=== PATIENT | male | born 1960 | race Caucasian/White ===

== ENCOUNTER → 2017-01-02 | Outpatient (REF) | payer MEDICARE, BC, OTHER ==
[2017-01-02 17:12] LABS: REASON FOR REVIEW COMPREHENSIVE REVIEW
== END ==
LOC: M LAB REF 15:11
PROVIDERS: ATTEND Internal Medicine Medical Oncology
DX: D72.819 Decreased white blood cell count, unspecified (principal); I82.90 Acute embolism and thrombosis of unspecified vein

== ENCOUNTER → 2017-01-24 | Outpatient (REF) | payer MEDICARE, BC, OTHER | LOC: M LAB REF 17:40 | PROVIDERS: ATTEND Internal Medicine Medical Oncology | DX: D70.8 Other neutropenia (principal) ==

== ENCOUNTER → 2017-12-10 | Outpatient (REF) | payer MEDICARE, BC, OTHER ==
[2017-12-10 16:19] LABS: BASO % 1.9 % (0.0-1.0); EOS # 0.3 10^3/uL (0.0-0.50); EOS % 13.2 % (0.0-3.0); HEMATOCRIT 29.4 % (42.0-52.0); IMMATURE GRANULOCYTE % 0.9 % (0-3.0); LYMPH # 0.8 10^3/uL (1.5-4.5); LYMPH % 36.8 % (24.0-44.0); MEAN CORPUSCULAR HEMOGLOBIN 34.1 pg (27.0-33.0); MEAN CORPUSCULAR VOLUME 100.3 fl (80.0-96.0); MONO # 0.2 10^3/uL (0.0-0.8); MONO % 10.8 % (0.0-5.0); NEUTROPHILS % 36.4 % (36.0-66.0); RED BLOOD COUNT 2.93 10^6/uL (4.30-6.10); RED CELL DISTRIBUTION WIDTH 16.6 % (11.5-14.5); WHITE BLOOD COUNT 2.1 10^3/uL (4.0-10.0)
[2017-12-10 16:36] LABS: NEUTROPHILS # 0.8 10^3/uL (1.8-7.7); POSITIVE DIFF POS FLAG
== END ==
LOC: M LAB REF 15:55
DX: Z79.899 Other long term (current) drug therapy (principal)
CPT/HCPCS: 85025

== ENCOUNTER → 2017-12-11 | Outpatient (REF) | payer MEDICARE, BC, OTHER ==
[2017-12-11 14:14] LABS: HEMATOCRIT 30.3 % (42.0-52.0); HEMOGLOBIN 10.2 g/dl (13.5-17.5); MEAN CORPUSCULAR HEMOGLOBIN 34.5 pg (27.0-33.0); MEAN CORPUSCULAR HGB CONC 33.7 g/dl (32.0-36.5); MEAN CORPUSCULAR VOLUME 102.4 fl (80.0-96.0); RED BLOOD COUNT 2.96 10^6/uL (4.30-6.10); RED CELL DISTRIBUTION WIDTH 16.8 % (11.5-14.5); WHITE BLOOD COUNT 2.7 10^3/uL (4.0-10.0)
[2017-12-11 14:17] LABS: PLATELET COUNT, AUTOMATED 86 10^3/uL (150-450); POSITIVE MORPH POS FLAG
[2017-12-11 14:18] LABS: ADD MANUAL DIFFER YES; DIFF SLIDE NUMBER 292
[2017-12-11 14:43] LABS: BASOPHILS 2 % (0-4); EOSINOPHILS 15 % (0-5); LYMPHOCYTES 33 % (16-52); MONOCYTES 1 % (0-8); NEUTROPHILS 49 % (35-75)
[2017-12-11 14:44] LABS: ANISOCYTOSIS 2+; PLATELET ESTIMATE DECREASED (NORMAL)
[2017-12-11 14:45] LABS: IMMATURE PLATELET FRACTION % 9.4 % (0.0-10.9)
== END ==
LOC: M LAB REF 13:26
DX: D64.9 Anemia, unspecified (principal)
CPT/HCPCS: 85049

== ENCOUNTER → 2017-12-12 | Outpatient (REF) | payer MEDICARE, BC, OTHER ==
[2017-12-12 13:33] LABS: HEMATOCRIT 31.5 % (42.0-52.0); HEMOGLOBIN 10.6 g/dl (13.5-17.5); MEAN CORPUSCULAR HEMOGLOBIN 34.3 pg (27.0-33.0); MEAN CORPUSCULAR HGB CONC 33.7 g/dl (32.0-36.5); MEAN CORPUSCULAR VOLUME 101.9 fl (80.0-96.0); RED BLOOD COUNT 3.09 10^6/uL (4.30-6.10); RED CELL DISTRIBUTION WIDTH 16.8 % (11.5-14.5); WHITE BLOOD COUNT 2.9 10^3/uL (4.0-10.0)
[2017-12-12 13:34] LABS: ADD MANUAL DIFFER YES; DIFF SLIDE NUMBER 269; PLATELET COUNT, AUTOMATED 83 10^3/uL (150-450); POSITIVE DIFF POS FLAG; POSITIVE MORPH POS FLAG
[2017-12-12 14:09] LABS: ANISOCYTOSIS 2+; BASOPHILS 1 % (0-4); EOSINOPHILS 24 % (0-5); LYMPHOCYTES 47 % (16-52); MONOCYTES 1 % (0-8); NEUTROPHILS 27 % (35-75); PLATELET ESTIMATE DECREASED (NORMAL)
[2017-12-12 14:10] LABS: HYPOCHROMASIA 1+
[2017-12-12 14:17] LABS: IMMATURE PLATELET FRACTION % 8.5 % (0.0-10.9)
[2017-12-12 14:48] LABS: EOS # 0.6 10^3/uL (0.0-0.50); EOS % 21.5 % (0.0-3.0); IMMATURE GRANULOCYTE % 3.1 % (0-3.0); LYMPH # 0.9 10^3/uL (1.5-4.5); LYMPH % 30.4 % (24.0-44.0); MONO # 0.3 10^3/uL (0.0-0.8); MONO % 9.2 % (0.0-5.0); NEUTROPHILS % 33.8 % (36.0-66.0)
[2017-12-12 14:49] LABS: BASO # 0.1 10^3/uL (0.0-0.2); IMMATURE GRANULOCYTE # 0.1 10^3/uL (0-0)
== END ==
LOC: M LAB REF 13:19
DX: C92.00 Acute myeloblastic leukemia, not having achieved remission (principal)
CPT/HCPCS: 85049

== ENCOUNTER → 2017-12-13 | Outpatient (REF) | payer MEDICARE, OTHER ==
[2017-12-13 12:32] LABS: BASO # 0.1 10^3/uL (0.0-0.2); BASO % 1.9 % (0.0-1.0); EOS # 0.7 10^3/uL (0.0-0.50); EOS % 27.2 % (0.0-3.0); HEMATOCRIT 31.3 % (42.0-52.0); HEMOGLOBIN 10.5 g/dl (13.5-17.5); IMMATURE GRANULOCYTE # 0.1 10^3/uL (0-0); IMMATURE GRANULOCYTE % 1.9 % (0-3.0); LYMPH # 0.6 10^3/uL (1.5-4.5); LYMPH % 22.6 % (24.0-44.0); MEAN CORPUSCULAR HEMOGLOBIN 34.2 pg (27.0-33.0); MEAN CORPUSCULAR HGB CONC 33.5 g/dl (32.0-36.5); MONO # 0.4 10^3/uL (0.0-0.8); MONO % 14.6 % (0.0-5.0); NEUTROPHILS # 0.8 10^3/uL (1.8-7.7); NEUTROPHILS % 31.8 % (36.0-66.0); PLATELET COUNT, AUTOMATED 73 10^3/uL (150-450); POSITIVE DIFF POS FLAG; POSITIVE MORPH POS FLAG; RED BLOOD COUNT 3.07 10^6/uL (4.30-6.10); RED CELL DISTRIBUTION WIDTH 16.7 % (11.5-14.5); WHITE BLOOD COUNT 2.6 10^3/uL (4.0-10.0)
== END ==
LOC: M LAB REF 11:45
DX: C92.00 Acute myeloblastic leukemia, not having achieved remission (principal)
CPT/HCPCS: 85027

== ENCOUNTER → 2017-12-18 | Outpatient (REF) | payer MEDICARE, OTHER ==
[2017-12-18 10:56] LABS: BASO % 1.4 % (0.0-1.0); EOS # 0.3 10^3/uL (0.0-0.50); HEMATOCRIT 31.5 % (42.0-52.0); HEMOGLOBIN 10.7 g/dl (13.5-17.5); LYMPH # 0.6 10^3/uL (1.5-4.5); LYMPH % 42.1 % (24.0-44.0); MEAN CORPUSCULAR HEMOGLOBIN 34.5 pg (27.0-33.0); MEAN CORPUSCULAR VOLUME 101.6 fl (80.0-96.0); MONO # 0.3 10^3/uL (0.0-0.8); MONO % 22.1 % (0.0-5.0); RED CELL DISTRIBUTION WIDTH 16.2 % (11.5-14.5)
[2017-12-18 11:00] LABS: EOS % 21.4 % (0.0-3.0); NEUTROPHILS # 0.2 10^3/uL (1.8-7.7); PLATELET COUNT, AUTOMATED 73 10^3/uL (150-450); POS COUNT POS FLAG; POSITIVE DIFF POS FLAG; WHITE BLOOD COUNT 1.5 10^3/uL (4.0-10.0)
[2017-12-18 11:01] LABS: IMMATURE PLATELET FRACTION % 8.6 % (0.0-10.9)
== END ==
LOC: M LAB REF 10:41
DX: C92.00 Acute myeloblastic leukemia, not having achieved remission (principal)
CPT/HCPCS: 85049

== ENCOUNTER → 2017-12-20 | Outpatient (REF) | payer MEDICARE, OTHER ==
[2017-12-20 11:13] LABS: BASO % 1.6 % (0.0-1.0); EOS # 0.7 10^3/uL (0.0-0.50); HEMATOCRIT 34.3 % (42.0-52.0); HEMOGLOBIN 11.6 g/dl (13.5-17.5); IMMATURE GRANULOCYTE % 0.4 % (0-3.0); LYMPH # 1.1 10^3/uL (1.5-4.5); LYMPH % 44.3 % (24.0-44.0); MEAN CORPUSCULAR HEMOGLOBIN 34.6 pg (27.0-33.0); MEAN CORPUSCULAR HGB CONC 33.8 g/dl (32.0-36.5); MEAN CORPUSCULAR VOLUME 102.4 fl (80.0-96.0); MONO # 0.5 10^3/uL (0.0-0.8); MONO % 19.3 % (0.0-5.0); NEUTROPHILS % 7.4 % (36.0-66.0); RED BLOOD COUNT 3.35 10^6/uL (4.30-6.10); WHITE BLOOD COUNT 2.4 10^3/uL (4.0-10.0)
[2017-12-20 11:15] LABS: NEUTROPHILS # 0.2 10^3/uL (1.8-7.7); PLATELET COUNT, AUTOMATED 92 10^3/uL (150-450); POSITIVE DIFF POS FLAG
[2017-12-20 11:16] LABS: IMMATURE PLATELET FRACTION % 8.4 % (0.0-10.9)
== END ==
LOC: M ONCM 10:44
DX: C92.00 Acute myeloblastic leukemia, not having achieved remission (principal)
CPT/HCPCS: 85049

== ENCOUNTER → 2017-12-23 | Outpatient (REF) | payer MEDICARE, OTHER ==
[2017-12-23 10:45] LABS: BASO # 0.1 10^3/uL (0.0-0.2); BASO % 1.9 % (0.0-1.0); EOS # 0.8 10^3/uL (0.0-0.50); HEMATOCRIT 35.2 % (42.0-52.0); HEMOGLOBIN 11.6 g/dl (13.5-17.5); LYMPH # 1.2 10^3/uL (1.5-4.5); MEAN CORPUSCULAR HEMOGLOBIN 33.8 pg (27.0-33.0); MEAN CORPUSCULAR VOLUME 102.6 fl (80.0-96.0); MONO # 0.4 10^3/uL (0.0-0.8); MONO % 14.9 % (0.0-5.0); NEUTROPHILS % 5.8 % (36.0-66.0); PLATELET COUNT, AUTOMATED 101 10^3/uL (150-450); RED BLOOD COUNT 3.43 10^6/uL (4.30-6.10); RED CELL DISTRIBUTION WIDTH 15.3 % (11.5-14.5); WHITE BLOOD COUNT 2.6 10^3/uL (4.0-10.0)
[2017-12-23 10:47] LABS: EOS % 31.4 % (0.0-3.0); NEUTROPHILS # 0.2 10^3/uL (1.8-7.7); POSITIVE DIFF POS FLAG
== END ==
LOC: M ONCM 09:46
DX: C92.00 Acute myeloblastic leukemia, not having achieved remission (principal)
CPT/HCPCS: 85027

== ENCOUNTER → 2017-12-25 | Outpatient (REF) | payer MEDICARE, OTHER ==
[2017-12-25 09:15] LABS: BASO % 1.4 % (0.0-1.0); EOS # 1.2 10^3/uL (0.0-0.50); EOS % 41.6 % (0.0-3.0); HEMOGLOBIN 11.7 g/dl (13.5-17.5); LYMPH # 1.1 10^3/uL (1.5-4.5); LYMPH % 38.8 % (24.0-44.0); MEAN CORPUSCULAR HEMOGLOBIN 34.4 pg (27.0-33.0); MEAN CORPUSCULAR HGB CONC 33.4 g/dl (32.0-36.5); MEAN CORPUSCULAR VOLUME 102.9 fl (80.0-96.0); MONO # 0.4 10^3/uL (0.0-0.8); MONO % 12.5 % (0.0-5.0); NEUTROPHILS # 0.2 10^3/uL (1.8-7.7); NEUTROPHILS % 5.7 % (36.0-66.0); PLATELET COUNT, AUTOMATED 79 10^3/uL (150-450); POSITIVE DIFF POS FLAG; WHITE BLOOD COUNT 2.8 10^3/uL (4.0-10.0)
[2017-12-25 09:17] LABS: IMMATURE PLATELET FRACTION % 8.3 % (0.0-10.9)
== END ==
LOC: M LAB REF 09:09
DX: C92.00 Acute myeloblastic leukemia, not having achieved remission (principal)
CPT/HCPCS: 85049

== ENCOUNTER 2018-04-22 11:26 | Inpatient (IN) | payer MEDICARE, BC, OTHER ==
[~2018-04-22] VITALS: Ht 170.2 cm; Wt 106.7 kg
[2018-04-22] MEDS ORDERED: ACYC200CA PO (11:49)
[2018-04-22] MEDS ORDERED: ASPI81TA63 PO (11:50)
[2018-04-22] MEDS ORDERED: MORPHINE 2 MG/ML 1ML SYRINGE (J2270) IV PRN (12:45)
[2018-04-22] MEDS ORDERED: ZARX0.05 INJ (13:24)
[2018-04-22] MEDS ORDERED: FOLBTAB3 PO (13:24)
[2018-04-22] MEDS ORDERED: METO25TA4 PO (13:24)
[2018-04-22] MEDS ORDERED: RAMI1CAP26 PO (13:24)
[2018-04-22] MEDS ORDERED: DIVA1TAB48 PO (13:24)
[2018-04-22] MEDS ORDERED: PANT40TA3 PO (13:24)
[2018-04-22] MEDS ORDERED: BUDE3CAP PO (13:24)
[2018-04-22] MEDS ORDERED: DOXY100C PO (13:24)
[2018-04-22] MEDS ORDERED: ACYC400T PO (13:24)
[2018-04-22] MEDS ORDERED: MG-PTAB PO (13:24)
[2018-04-22] MEDS ORDERED: PARO20TA3 PO (13:24)
[2018-04-22] MEDS ORDERED: NOXA1TAB PO (13:24)
[2018-04-22] MEDS ORDERED: LASI20TA3 PO (13:24)
[2018-04-22] MEDS ORDERED: DRIS50003 PO (13:24)
[2018-04-22] MEDS ORDERED: ASPI81TA24 PO (13:24)
[2018-04-22] MEDS ORDERED: POTA20TA6 PO (13:24)
[2018-04-22] MEDS ORDERED: SIRO1TAB PO (13:24)
[2018-04-22] MEDS ORDERED: URSO300C3 PO (13:24)
[2018-04-22] MEDS ORDERED: CIPR-249 PO (13:24)
[2018-04-22] MEDS ORDERED: PLAV1TAB2 PO (13:24)
[2018-04-22] MEDS ORDERED: METO25TA PO (13:24)
[2018-04-22] MEDS ORDERED: ROPI0.253 PO (13:24)
--- NOTE | 2018-04-22 13:27 | REP ---
Right lower extremity Duplex Doppler venous ultrasound: Real time compression and duplex Doppler interrogation of the right lower extremity deep venous system is performed. The right common femoral, superficial femoral and popliteal veins are fully compressible with transducer pressure and demonstrate normal spontaneous and phasic flow, without evidence of deep venous thrombosis. Impression: No evidence of deep venous thrombosis of the right lower extremity femoral popliteal venous system. Electronically Signed by Wilder Del Real MD 04/22/2018 01:18 P
[2018-04-22] MEDS ORDERED: BECLPOW PO (13:39)
--- NOTE | 2018-04-22 13:39 | REP ---
CHEST, SINGLE VIEW: Single view of the chest was performed and compared to prior study of 01/20/2015. There is no acute infiltrate. Heart is normal in size. There is calcification and tortuosity of the thoracic aorta. Mediastinal silhouette is unchanged. Right central venous catheter is seen with the tip in the superior vena cava. IMPRESSION: No acute pulmonary disease. Electronically Signed by Wilder Del Real MD 04/22/2018 05:27 P
[2018-04-22] MEDS ORDERED: ONDA8TAB7 PO (13:42)
[2018-04-22] MEDS ORDERED: FAMO1TAB11 PO (13:42)
[2018-04-22] MEDS ORDERED: LOPE2CAP PO (13:42)
[2018-04-22] MEDS ORDERED: TRAM50TA2 PO (13:43)
[2018-04-22 14:24] LABS: HEMOGLOBIN 12.9 g/dl (13.5-17.5); MEAN CORPUSCULAR HEMOGLOBIN 33.9 pg (27.0-33.0); MEAN CORPUSCULAR HGB CONC 33.9 g/dl (32.0-36.5); MEAN CORPUSCULAR VOLUME 99.7 fl (80.0-96.0); RED BLOOD COUNT 3.81 10^6/uL (4.30-6.10)
[2018-04-22 14:33] LABS: PLATELET COUNT, AUTOMATED 43 10^3/uL (150-450); WHITE BLOOD COUNT 1.7 10^3/uL (4.0-10.0)
[2018-04-22 14:41] LABS: INR 1.02; PARTIAL THROMBOPLASTIN TIME 25.1 SECONDS (25.4-37.6); PROTHROMBIN TIME 13.5 SECONDS (12.1-14.4)
[2018-04-22 15:00] LABS: ALBUMIN 3.1 GM/DL (3.2-5.2); ALT/SGPT 194 U/L (12-78); AMYLASE 48 U/L (25-115); BILIRUBIN,DIRECT 0.1 MG/DL (0.0-0.2); BILIRUBIN,TOTAL 0.4 MG/DL (0.2-1.0); BLOOD UREA NITROGEN 27 MG/DL (7-18); CALCIUM LEVEL 8.5 MG/DL (8.5-10.1); CARBON DIOXIDE LEVEL 29 MEQ/L (21-32); CHLORIDE LEVEL 104 MEQ/L (98-107); CK-MB VALUE MASS < 1.0 NG/ML (<3.6); CPK CREATINE PHOSPHOKINASE 30 U/L (39-308); CREATININE FOR GFR 1.36 MG/DL (0.70-1.30); GLOMERULAR FILTRATION RATE 57.3 (>56); GLUCOSE, FASTING 91 MG/DL (70-100); LIPASE 285 U/L (73-393); MB/CK RELATIVE INDEX 3.33 (< OR =4); POTASSIUM SERUM 3.8 MEQ/L (3.5-5.1); SODIUM LEVEL 140 MEQ/L (136-145); TOTAL PROTEIN 5.5 GM/DL (6.4-8.2); TROPONIN I 0.02 NG/ML (< 0.10)
[2018-04-22 15:18] LABS: LYMPHOCYTES 14 % (16-52); MONOCYTES 5 % (0-8); NEUTROPHILS 73 % (35-75); PLATELET ESTIMATE MARKED DECREASE (NORMAL)
[2018-04-22] MEDS ORDERED: ISOVUE-370 76% 100ML VIAL (Q9967) As Ordered ONE (15:18)
[2018-04-22 15:19] LABS: ANISOCYTOSIS 1+
[2018-04-22] MEDS ORDERED: NS 500 ML IV ONE (16:00)
[2018-04-22] MEDS ORDERED: CIPROFLOXACIN 400 MG in APPROPRIATE DILUENT 1 EA IV ONE (16:00)
[2018-04-22] MEDS ORDERED: metroNIDAZOLE 500 MG in APPROPRIATE DILUENT 1 EA IV ONE (16:00)
--- NOTE | 2018-04-22 16:25 | REP ---
CT ABDOMEN AND PELVIS WITH IV CONTRAST: TECHNIQUE: Axial contrast enhanced images from the lung bases to the pubic symphysis using 100 mL Isovue 370 intravenous contrast material with multiplanar reformations. Visualized lung bases demonstrate no infiltrate. The liver, spleen, adrenals, pancreas and kidneys are unremarkable. There is probably a tiny renal cyst in each kidney. There is no hydronephrosis. There is atherosclerotic calcification of the abdominal aorta without aneurysm. I see no adenopathy. There is mild perihepatic and perisplenic free fluid, with mild fluid in the pericolic gutters bilaterally. There is diffuse thickening of the sigmoid colon with surrounding streaky inflammatory change in the mesenteric fat. There is focal extraluminal air just above the sigmoid colon. There are diverticula of the sigmoid colon. This may represent perforated sigmoid diverticulitis. No free air is seen elsewhere. There are no other areas of definite bowel wall thickening. Urinary bladder is mildly distended and grossly unremarkable. Scarring is noted of the left anterior abdominal wall. There is a small ventral hernia above the umbilicus in the midline containing a small amount of fat and fluid. There are degenerative changes of the spine. IMPRESSION: Diffuse inflammation and thickening of the sigmoid colon. Extensive inflammatory change in the surrounding mesenteric fat. Local extraluminal air adjacent to the sigmoid. Findings suggest perforated sigmoid diverticulitis. There is mild free fluid in the abdomen and pelvis. Preliminary report provided for Dr. Clemons by telephone at 3:40 p.m. 04/22/2018. Electronically Signed by Wilder Del Real MD 04/23/2018 10:36 A
[2018-04-22] MEDS ORDERED: ONDANSETRON 4 MG TAB (S0181) PO PRN (18:30)
[2018-04-22] MEDS ORDERED: traMADol 50 MG TAB PO PRN (18:30)
[2018-04-22] MEDS ORDERED: LOPERAMIDE 2 MG CAP PO PRN (18:30)
[2018-04-22] MEDS ORDERED: PILL CRUSHER/CUTTER 1 EACH XX PRN (19:00)
--- NOTE | 2018-04-22 19:09 | ECGEPIP ---
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
[2018-04-22] MEDS: rOPINIRole 0.25 MG TAB(REQUIP) PO SCH (21:35)
[2018-04-22] MEDS: METOPROLOL TART 25 MG TABLET PO SCH (21:35)
[2018-04-22] MEDS: DIVALPROEX 125 MG TAB PO SCH (21:36)
[2018-04-22] MEDS: URSODIOL 300 MG CAP PO SCH (21:36)
[2018-04-22] MEDS: RAMIPRIL 5 MG CAP PO SCH (21:36)
--- NOTE | 2018-04-22 23:04 | HPEPDOC ---
General Date of Admission Apr 22, 2018 at 18:20 Primary Care Physician: Ramón Brady MD Other Providers Pulm: Dr. Zuirta Cardio: Dr. Cleveland Onc: Dr. Funes @ [place] Neuro: Dr. Pack Attending Physician: JOSE MANUEL FOWLER MD Chief Complaint The patient is a 57-year-old male admitted with a reason for visit of Cellulitis Of R Leg,Diverticulitis Of Colon. 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 Presents for acute onset of sharp low abd pain that began suddenly after eating supper on Saturday. Denies radiation, describes it as constant, aggravated by movement, alleviated by rest. Denies experiencing this before. No other sx. Denies f/c, n/v, changes in bowel habits, lightheadedness, dizziness. In ER, CT abd/pelvis noted to have perforated diverticulitis. ER spoke with Dr. Roa, who deemed it a microperforation and recommended supportive care, NPO, IVF, abx. Of note, pt also complained of rt leg pain. Doppler in ER was neg for DVT. Pt unsure of when the pain started and has limited hx regarding leg pain. Is notable to have erythema and warmth compared to left leg. No weeping fluids or visible ulcers/lesions. Pt was admitted for the aforementioned concerns. Home Medications Scheduled (Folbic 2.5-25-2 mg) 1 Tab Tab, 1 TAB PO DAILY, (Reported) (mg-Plus Protein 133 mg) 1 Tab Tab, 2 TAB PO BID, (Reported) (Zarxio) 480 Mcg/0.8 Ml Inj, 480 MCG INJ 1XWK, (Reported) FRIDAYS IF ANC <1.5 Acyclovir (Acyclovir) 400 Mg Tab, 400 MG PO DAILY, (Reported) Aspirin (Aspirin EC) 81 Mg Tab, 81 MG PO DAILY, (Reported) Beclomethasone Dipropionate (Beclomethasone Dipropiona) 1 Pow Pow, 2 MG PO QID, (Reported) Budesonide (Budesonide) 3 Mg Cap, 9 MG PO DAILY, (Reported) Ciprofloxacin HCl (Cipro) 500 Mg Tab, 500 MG PO BID, (Reported) Clopidogrel Bisulfate (Plavix) 75 Mg Tab, 75 MG PO DAILY, (Reported) ON HOLD- WAITING FOR PLATELET COUNT BEFORE RESTARTING Divalproex Sodium (Divalproex Sodium Dr) 125 Mg Tab, 125 MG PO QHS, (Reported) Doxycycline Hyclate (Doxycycline Hyclate) 100 Mg Cap, 100 MG PO QPM, (Reported) HOLD WHILE ON CIPRO Furosemide (Lasix) 20 Mg Tab, 20 MG PO 3XW, (Reported) SAT,SAT,SAT Metolazone (Metolazone) 2.5 Mg Tab, 2.5 MG PO 3XW, (Reported) SAT,SAT,SAT Metoprolol Tartrate (Metoprolol Tartrate) 25 Mg Tab, 25 MG PO BID, (Reported) Pantoprazole Sodium (Pantoprazole Sodium) 40 Mg Tab, 40 MG PO DAILY, (Reported) Paroxetine (Paroxetine HCl) 20 Mg Tab, 20 MG PO DAILY, (Reported) Posaconazole (Noxafil) 100 Mg Tab, 300 MG PO DAILY, (Reported) Potassium Chloride (Potassium Chloride ER) 20 Meq Tab, 40 MEQ PO BID, (Reported) Ramipril (Ramipril) 10 Mg Cap, 10 MG PO BID, (Reported) Ropinirole Hydrochloride (Ropinirole HCl) 0.25 Mg Tab, 0.75 MG PO QHS, (Reported) Sirolimus (Sirolimus) 0.5 Mg Tab, 0.5 MG PO 5XW, (Reported) SATURDAY- @ LUNCHTIME Ursodiol (Ursodiol) 300 Mg Cap, 600 MG PO TID, (Reported) Vitamin D (Drisdol) 50,000 Unit Cap, 50,000 UNIT PO QWEEK, (Reported) SATURDAY Scheduled PRN Famotidine (Famotidine) 20 Mg Tab, 20 MG PO DAILY PRN for HEARTBURN/INDIGESTION, (Reported) Loperamide HCl (Loperamide HCl) 2 Mg Tab, 4 MG PO PRN PRN for DIARRHEA, (Reported) Ondansetron HCl (Ondansetron HCl) 8 Mg Tab, 8 MG PO TID PRN for NAUSEA, (Reported) Tramadol HCl (Tramadol HCl) 50 Mg Tab, 50 MG PO QID PRN for PAIN, (Reported) Allergies Coded Allergies: Penicillins (Verified Allergy, Severe, POSSIBLE ANAPHYLAXIS, 06/10/12) Penicillins Cross Reactors (Verified Allergy, Severe, POSSIBLE ANAPH YLAXIS, 06/10/12) Statins (Verified Allergy, Intermediate, EXTREME MUSCLE PAIN, CANNOT TOLERATE, 04/22/18) Past Medical History Medical History AML, 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 Admits to low abd sharp pain MSK: admits to RLE pain and tenderness Neuro: denies new paresthesia Physical Examination Other physical findings General: NAD, resting comfy, A&Ox3 HEENT: NCAT, anicteric sclera, MMM CV: RRR, distant sounds Pulm: CTAB, no w/r/r. Infusaport on rt chest well GI: hypoactive bowel sounds, mildly tender to palpation in b/l lower quadrants. Large scar on left side of abd from previous graft MSK: able to move all extremities Extremities: 2+ radial pulses, diminished dp pulses. Warm and pink toes. 3+ pitting edema b/l LE. Warmth, erythema, and tenderness to palpation throughout rt LE from foot to calf Psych: irritable Vital Signs Vital Signs Date Time Temp Pulse Resp B/P (MAP) Pulse Ox O2 Delivery O2 Flow Rate FiO2 04/22/18 21:36 155/80 04/22/18 21:35 67 04/22/18 14:53 18 97 04/22/18 11:58 97.9 04/22/18 11:26 Room Air Laboratory Data Labs 24H Laboratory Tests 2 04/22/18 14:09: Immature Granulocyte % (Auto) , White Blood Count 1.7L, Red Blood Count 3.81L, Hemoglobin 12.9L, Hematocrit 38.0L, Mean Corpuscular Volume 99.7H, Mean Corpuscular Hemoglobin 33.9H, Mean Corpuscular Hemoglobin Concent 33.9, Red Cell Distribution Width 15.3H, Platelet Count 43L, Lymphocytes # (Auto) , Nucleated Red Blood Cells % (auto) 0.0, Neutrophils 73, Band Neutrophils 8, Lymphocytes (Manual) 14L, Monocytes (Manual) 5, Platelet Estimate MARKED DECREASE, Immature Platelet Fraction 5.9, Anisocytosis 1+, Prothrombin Time 13.5, Prothromb Time International Ratio 1.02, Activated Partial Thromboplast Time 25.1L, Anion Gap 7L, Glomerular Filtration Rate 57.3, Lactic Acid Level 1.3, Calcium Level 8.5, Aspartate Amino Transf (AST/SGOT) 114H, Alanine Aminotransferase (ALT/SGPT) 194H, Alkaline Phosphatase 56, Total Bilirubin 0.4, Direct Bilirubin 0.1, Total Creatine Kinase 30L, Creatine Kinase MB < 1.0, Creatine Kinase MB Relative Index 3.33, Troponin I 0.02, Total Protein 5.5L, Albumin 3.1L, Albumin/Globulin Ratio 1.29, Amylase Level 48, Lipase 285 04/22/18 14:23: Urine Color JO, Urine Appearance HAZY, Urine pH 5.0, Urine Specific [place] 1.023, Urine Protein 2+H, Urine Glucose (UA) NEGATIVE, Urine Ketones TRACEH, Urine Blood NEGATIVE, Urine Nitrite NEGATIVE, Urine Bilirubin NEGATIVE, Urine Urobilinogen 2.0H, Urine Leukocyte Esterase NEGATIVE, Urine WBC (Auto) 3, Urine RBC (Auto) 1, Urine Hyaline Casts (Auto) 19, Urine Bacteria (Auto) NEGATIVE, Urine Squamous Epithelial Cells 0, Urine Mucus (Auto) MODERATE, Urine Sperm (Auto) CBC/BMP Laboratory Tests 04/22/18 14:09 Red Blood Count 3.81 L, Mean Corpuscular Volume 99.7 H, Mean Corpuscular Hemoglobin 33.9 H, Mean Corpuscular Hemoglobin Concent 33.9, Red Cell Distribu tion Width 15.3 H, Lymphocytes # (Auto) Microbiology Microbiology 04/22/18 Blood Culture, Received Pending 04/22/18 Blood Culture, Received Pending Assessment/Plan Perforated Diverticulitis consulted Dr. Roa. Appreciate input: deemed to be microperf and recommends NPO, IVF, IV abx, and monitor closely. No plans for OR yet Will place on IV Flagyl & Meropenem given his concurrent cellulitis and penicillin allergy RLE Cellulitis warmth, erythema, tenderness to RLE. No purulent drainage covered with Meropenem AML, complex cytogenetics follows with [facility] in [place], with records sent to Dr. Govea consider consulting Dr. Govea for further inpt management regarding inpt AML pt normally received Zarxio for ANC<1500. 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 Will hold home Metolazone and Lasix. 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 Pt refusing DANIEL/SCD given leg pain DISPO: will admit to hospitalist service, to be seen by Sx. Obtain o/p records. Plan / VTE VTE Prophylaxis Ordered?: No VTE Exclusion Mechanical Proph: Patient/Family Refusal VTE Exclusion Pharmacological: Thrombocytopenia GME ATTESTATION GME ATTESTATION My faculty preceptor for this patient encounter was physically present during the encounter and was fully available. All aspects of the patient interview, examination, medical decision making process, and medical care plan development were reviewed and approved by the faculty preceptor. The faculty preceptor is aware and concurs with the plan as stated in the body of this note and will attest to such by his/her cosignature. GONZALO GUTIÉRREZ DO Apr 22, 2018 23:01
[2018-04-22] MEDS: D5W/0.45% SODIUM CHLORIDE 1,000 ML IV SCH (23:51)
[2018-04-22] MEDS: MEROPENEM INJ 1 GM in APPROPRIATE DILUENT 1 EA IV SCH (23:51)
[2018-04-23] MEDS ORDERED: metroNIDAZOLE 750 MG in APPROPRIATE DILUENT 1 EA IV SCH (01:00)
[2018-04-23] MEDS ORDERED: CIPROFLOXACIN 400 MG in APPROPRIATE DILUENT 1 EA IV SCH (06:00)
[2018-04-23] MEDS: MEROPENEM INJ 1 GM in APPROPRIATE DILUENT 1 EA IV SCH ×3 (06:45→21:37)
[2018-04-23] MEDS: BUDESONIDE EC 3 MG CAP (ENTOCORT EC) PO SCH (08:21)
[2018-04-23] MEDS: URSODIOL 300 MG CAP PO SCH ×3 (08:21→21:25)
[2018-04-23] MEDS: RAMIPRIL 5 MG CAP PO SCH ×2 (08:22→21:24)
[2018-04-23] MEDS: CYANOCOBALAMIN 250 MCG TABLET PO SCH (08:22)
[2018-04-23] MEDS: PANTOPRAZOLE 40MG TAB (PROTONIX) PO SCH (08:23)
[2018-04-23] MEDS: PYRIDOXINE 50 MG TAB PO SCH (08:25)
[2018-04-23] MEDS: ACYCLOVIR 200 MG CAPSULE PO SCH (08:25)
[2018-04-23] MEDS: FOLIC ACID 1 MG TAB PO SCH (08:25)
[2018-04-23] MEDS: PARoxetine 20 MG TAB PO SCH (08:25)
[2018-04-23] MEDS: METOPROLOL TART 25 MG TABLET PO SCH ×2 (08:25→21:37)
[2018-04-23] MEDS: ASPIRIN 81 MG ENTERIC TAB PO SCH (08:29)
[2018-04-23 08:48] LABS: HEMATOCRIT 34.9 % (42.0-52.0); MEAN CORPUSCULAR HEMOGLOBIN 33.8 pg (27.0-33.0); MEAN CORPUSCULAR HGB CONC 34.4 g/dl (32.0-36.5); MEAN CORPUSCULAR VOLUME 98.3 fl (80.0-96.0); RED BLOOD COUNT 3.55 10^6/uL (4.30-6.10)
[2018-04-23 08:49] LABS: PLATELET COUNT, AUTOMATED 39 10^3/uL (150-450); WHITE BLOOD COUNT 1.3 10^3/uL (4.0-10.0)
[2018-04-23] MEDS ORDERED: FILGRASTIM 480 MCG/0.8 ML SYRINGE (J1442) SC SCH (09:00)
--- NOTE | 2018-04-23 09:03 | IPNPDOC ---
Text Note Date of Service The patient was seen on 04/23/18. NOTE No acute events overnight. He does feel like his pain is improved. He had ano ther BM this am without any blood in it, and it was formed. He denies nausea, emesis, fevers, or shortness of breath. VSSAF NAD abd - soft, TTP LLQ slightly improved from yesterday. No rebound or guarding labs - see below A) 57y/o male with complicated diverticulitis with a microperforation immunocompromised with graft vs. host diseases P) NPO except ice and water abx ambulate bowel rest monitor labs and vitals closely if he develops any sudden increases in pain then he will need an acute abdominal series STAT. Jose Roa DO VS,Abbey, I+O VS, Abbey, I+O Laboratory Tests 04/22/18 14:09 Red Blood Count 3.81 L, Mean Corpuscular Volume 99.7 H, Mean Corpuscular Hemoglobin 33.9 H, Mean Corpuscular Hemoglobin Concent 33.9, Red Cell Dist ribution Width 15.3 H, Lymphocytes # (Auto) 04/23/18 08:34 Red Blood Count 3.55 L, Mean Corpuscular Volume 98.3 H, Mean Corpuscular Hemoglobin 33.8 H, Mean Corpuscular Hemoglobin Concent 34.4, Red Cell Distribution Width 15.0 H, Lymphocytes # (Auto) Vital Signs Date Time Temp Pulse Resp B/P (MAP) Pulse Ox O2 Delivery O2 Flow Rate FiO2 04/23/18 08:25 69 165/81 04/23/18 07:31 17 98 04/23/18 05:31 Room Air 04/23/18 04:01 97.9 I&O- Last 24 Hours up to 6 AM 04/23/18 06:00 Intake Total 300 ml Output Total 200 ml Balance 100 ml FILIPE ROA DO Apr 23, 2018 09:03
[2018-04-23 09:19] LABS: ALBUMIN 2.8 GM/DL (3.2-5.2); ALT/SGPT 145 U/L (12-78); BILIRUBIN,TOTAL 0.3 MG/DL (0.2-1.0); BLOOD UREA NITROGEN 25 MG/DL (7-18); CALCIUM LEVEL 7.8 MG/DL (8.5-10.1); CARBON DIOXIDE LEVEL 26 MEQ/L (21-32); CHLORIDE LEVEL 106 MEQ/L (98-107); GLOMERULAR FILTRATION RATE > 60.0 (>56); GLUCOSE, FASTING 92 MG/DL (70-100); POTASSIUM SERUM 3.1 MEQ/L (3.5-5.1); SODIUM LEVEL 141 MEQ/L (136-145); TOTAL PROTEIN 4.7 GM/DL (6.4-8.2)
[2018-04-23 09:43] LABS: ANISOCYTOSIS 1+; ATYPICAL LYMPH 2 % (0-5); EOSINOPHILS 2 % (0-5); MONOCYTES 8 % (0-8); NEUTROPHILS 86 % (35-75); TOXIC VACUOLATION 2+
[2018-04-23 09:44] LABS: PLATELET ESTIMATE DECREASED (NORMAL)
[2018-04-23 15:54] VITALS: BP 143/83
[2018-04-23] MEDS: D5W/0.45% SODIUM CHLORIDE 1,000 ML IV SCH ×3 (21:23→22:14)
[2018-04-23] MEDS: DIVALPROEX 125 MG TAB PO SCH (21:24)
[2018-04-23] MEDS: rOPINIRole 0.25 MG TAB(REQUIP) PO SCH (21:25)
[2018-04-23 21:30] VITALS: BP 151/85
--- NOTE | 2018-04-23 22:09 | IPNPDOC ---
Text Note Date of Service The patient was seen on 04/23/18. NOTE S: pt seen at bedside in ER. No events overnight. Abd pain is improving. No f/c/n/v/changes in bowel habits/bloody output PE: General: NAD, sitting in chair comfortably, A&Ox3 HEENT: NCAT, anicteric sclera, MMM CV: RRR, distant sounds Pulm: CTAB, no w/r/r. Infusaport on rt chest well GI: hypoactive bowel sounds, mildly tender to palpation in mid lower abd, improved from yesterday. Soft, no rebound tenderness, guarding, or rigidity. MSK: able to move all extremities Extremities: 2+ radial pulses. 3+ pitting edema b/l LE. Warmth, erythema, and tenderness to palpation throughout rt LE from foot to calf-unchanged from yesterday A/P: Diverticulitis with Microperforation continue NPO, IVF, IV abx, and monitor closely. No plans for OR. He is improving compared to admission Continue IV Meropenem started 04/22 Dr. Roa consulted. Appreciate input RLE Cellulitis warmth, erythema, tenderness to RLE unchanged from admission. No purulent drainage covered with Meropenem AML, complex cytogenetics in remission, s/p transplant. Follows with [facility] in [place] Dr. Govea consulted for further inpt management given his fragile state. Appreciate input Per her rec, will start pt on Neupogen 480 sc/day until ANC>1500 in lieu of his regular Zarxio, which we do not have on formulary. First dose of Neupogen today for an ANC of 1114 this am. 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 Will hold home Metolazone and Lasix. 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 Pt refusing DANIEL/SCD given leg pain DISPO: pending clinical improvement and awaiting o/p PCP records. VS,Fishbone, I+O VS, Fishbone, I+O Laboratory Tests 04/23/18 08:34 Red Blood Count 3.55 L, Mean Corpuscular Volume 98.3 H, Mean Corpuscular Hemoglobin 33.8 H, Mean Corpuscular Hemoglobin Concent 34.4, Red Cell Distribution Width 15.0 H, Lymphocytes # (Auto) , Calcium Level 7.8 L, Aspartate Amino Transf (AST/SGOT) 77 H, Alanine Aminotransferase (ALT/SGPT) 145 H, Alkaline Phosphatase 49, Total Bilirubin 0.3, Total Protein 4.7 L, Albumin 2.8 L Vital Signs Date Time Temp Pulse Resp B/P (MAP) Pulse Ox O2 Delivery O2 Flow Rate FiO2 04/23/18 21:37 80 151/85 04/23/18 15:54 97.9 20 97 04/23/18 05:31 Room Air I&O- Last 24 Hours up to 6 AM 04/23/18 06:00 Intake Total 300 ml Output Total 200 ml Balance 100 ml GME ATTESTATION GME ATTESTATION My faculty preceptor for this patient encounter was physically present during the encounter and was fully available. All aspects of the patient interview, examination, medical decision making process, and medical care plan development were reviewed and approved by the faculty preceptor. The faculty preceptor is aware and concurs with the plan as stated in the body of this note and will attest to such by his/her cosignature. GONZALO GUTIÉRREZ DO Apr 23, 2018 22:08
[2018-04-24] MEDS: MEROPENEM INJ 1 GM in APPROPRIATE DILUENT 1 EA IV SCH ×2 (05:49→14:23)
[2018-04-24 05:51] VITALS: BP 148/82
[2018-04-24 07:57] LABS: ALBUMIN 2.8 GM/DL (3.2-5.2); ALT/SGPT 165 U/L (12-78); BILIRUBIN,TOTAL 0.5 MG/DL (0.2-1.0); BLOOD UREA NITROGEN 25 MG/DL (7-18); CARBON DIOXIDE LEVEL 26 MEQ/L (21-32); CHLORIDE LEVEL 105 MEQ/L (98-107); CREATININE FOR GFR 0.91 MG/DL (0.70-1.30); GLOMERULAR FILTRATION RATE > 60.0 (>56); GLUCOSE, FASTING 93 MG/DL (70-100); SODIUM LEVEL 140 MEQ/L (136-145); TOTAL PROTEIN 5.3 GM/DL (6.4-8.2)
[2018-04-24 08:00] VITALS: BP 179/85
[2018-04-24] MEDS ORDERED: NOXAFIL PO SCH (08:00)
[2018-04-24] MEDS ORDERED: POTASSIUM CHLORIDE 10 MEQ SR TABLET PO ONE (08:15)
[2018-04-24] MEDS: ACYCLOVIR 200 MG CAPSULE PO SCH (08:21)
[2018-04-24] MEDS: D5W/0.45% SODIUM CHLORIDE 1,000 ML IV SCH (08:21)
[2018-04-24] MEDS: METOPROLOL TART 25 MG TABLET PO SCH (08:22)
[2018-04-24] MEDS: FOLIC ACID 1 MG TAB PO SCH (08:22)
[2018-04-24] MEDS: PARoxetine 20 MG TAB PO SCH (08:22)
[2018-04-24] MEDS: PANTOPRAZOLE 40MG TAB (PROTONIX) PO SCH (08:22)
[2018-04-24 08:59] LABS: HEMATOCRIT 36.9 % (42.0-52.0); HEMOGLOBIN 12.4 g/dl (13.5-17.5); MEAN CORPUSCULAR HEMOGLOBIN 33.4 pg (27.0-33.0); MEAN CORPUSCULAR HGB CONC 33.6 g/dl (32.0-36.5); MEAN CORPUSCULAR VOLUME 99.5 fl (80.0-96.0); RED BLOOD COUNT 3.71 10^6/uL (4.30-6.10)
[2018-04-24 09:03] LABS: PLATELET COUNT, AUTOMATED 35 10^3/uL (150-450)
[2018-04-24] MEDS: KCL 10MEQ/100ML SWI (KRUN) 10 MEQ in APPROPRIATE DILUENT 1 EA IV SCH ×2 (09:09→10:40)
[2018-04-24] MEDS: ASPIRIN 81 MG ENTERIC TAB PO SCH (09:10)
[2018-04-24 10:14] LABS: EOSINOPHILS 1 % (0-5); LYMPHOCYTES 12 % (16-52); MONOCYTES 2 % (0-8); NEUTROPHILS 80 % (35-75); NUCLEATED RED BLOOD CELL 1 % (0-0)
[2018-04-24 10:15] LABS: PLATELET ESTIMATE MARKED DECREASE (NORMAL)
--- NOTE | 2018-04-24 10:48 | IPNPDOC ---
Text Note Date of Service The patient was seen on 04/24/18. NOTE S: pt seen at bedside in ER. No events overnight. Abd pain and RLE pain continue to improve. Pt requesting to leave AMA because he is concerned about his AML, but after explaining in detail his medical conditions to him yesterday and again today, he is agreeable to staying. No f/c/n/v/changes in bowel habits/bloody output PE: General: NAD, sitting in chair comfortably, A&Ox3 HEENT: NCAT, anicteric sclera, MMM CV: RRR, distant sounds Pulm: CTAB, no w/r/r. Infusaport on rt chest well GI: hypoactive bowel sounds, mildly tender to palpation in mid lower abd, improved from previous days. Soft, no rebound tenderness, guarding, or rigidity. MSK: able to move all extremities Extremities: 2+ radial pulses. 2+ pitting edema b/l LE. Warmth, erythema, and tenderness to palpation throughout rt LE from foot to calf much improved from previous days A/P: Diverticulitis with Microperforation clinically improving, continue NPO, IVF, IV abx, and monitor closely. Continue IV Meropenem started 04/22 Dr. Roa consulted. Appreciate input-No plans for OR. Recommend o/p f/u as he continues to improve RLE Cellulitis warmth, erythema, tenderness to RLE improving. No purulent drainage covered with Meropenem AML, complex cytogenetics in remission, s/p transplant. Follows with [facility] in [place] Dr. Govea consulted for further inpt management given his fragile state. Appreciate input Per her rec, pt to be on Neupogen 480 sc/day until ANC>1500 in lieu of his reg ular Zarxio, which we do not have on formulary. First dose was given yesterday 04/23, with positive response with ANC is 2550 today. Will administer additional doses as needed for ANC <1500. 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 Will hold home Metolazone and Lasix. 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 Pt refuses DANIEL/SCD given leg pain DISPO: pending clinical improvement and awaiting o/p PCP records. VS,Fishbone, I+O VS, Fishbone, I+O Laboratory Tests 04/24/18 07:09 Red Blood Count 3.71 L, Mean Corpuscular Volume 99.5 H, Mean Corpuscular Hemoglobin 33.4 H, Mean Corpuscular Hemoglobin Concent 33.6, Red Cell Distribution Width 14.9 H, Lymphocytes # (Auto) , Calcium Level 8.0 L, Aspartate Amino Transf (AST/SGOT) 88 H, Alanine Aminotransferase (ALT/SGPT) 165 H, Alkaline Phosphatase 54, Total Bilirubin 0.5 #, Total Protein 5.3 L, Albumin 2.8 L Vital Signs Date Time Temp Pulse Resp B/P (MAP) Pulse Ox O2 Delivery O2 Flow Rate FiO2 04/24/18 08:22 66 179/85 04/24/18 05:51 98.6 18 97 04/23/18 05:31 Room Air I&O- Last 24 Hours up to 6 AM 04/24/18 06:00 Intake Total 1050 ml Output Total 1450 ml Balance -400 ml GME ATTESTATION GME ATTESTATION My faculty preceptor for this patient encounter was physically present during the encounter and was fully available. All aspects of the patient interview, examination, medical decision making process, and medical care plan development were reviewed and approved by the faculty preceptor. The faculty preceptor is aware and concurs with the plan as stated in the body of this note and will attest to such by his/her cosignature. GONZALO GUTIÉRREZ DO Apr 24, 2018 10:48
[2018-04-24 11:40] VITALS: BP 166/88
[2018-04-24] MEDS ORDERED: SIROLIMUS 0.5MG TABLET (PATIENT'S OWN MED) PO SCH (12:00)
[2018-04-24] MEDS: CYANOCOBALAMIN 250 MCG TABLET PO SCH (12:06)
[2018-04-24] MEDS: PYRIDOXINE 50 MG TAB PO SCH (12:06)
[2018-04-24 12:07] VITALS: BP 166/88
[2018-04-24] MEDS: URSODIOL 300 MG CAP PO SCH ×2 (12:07→15:25)
[2018-04-24] MEDS: RAMIPRIL 5 MG CAP PO SCH (12:07)
[2018-04-24] MEDS: BUDESONIDE EC 3 MG CAP (ENTOCORT EC) PO SCH (12:10)
--- NOTE | 2018-04-24 13:10 | IPNPDOC ---
Text Note Date of Service The patient was seen on 04/24/18. NOTE No acute events overnight. The LLQ pain is completely resolved this am. He is only having pain in the right leg today with increased swelling, and redness. He denies nausea, emesis, fevers, or shortness of breath. VSSAF NAD abd - soft, LLQ Tenderness is completely resolved. No rebound or guarding labs - see below A) 57y/o male with complicated diverticulitis with a microperforation that is resolved immunocompromised with graft vs. host diseases right leg cellulitis P) low residue diet abx ambulate Plan was for d/c home today from a diverticulitis standpoint. However, since he is having increased signs of cellulitis in the right leg that is not improving, recommendation from Oncology is transfer to [facility]. I agree with their decision from the cellulitis standpoint For the diverticulitis, I recommend to continue a 14 day course with PO abx. Stay on low residue diet for 2 weeks, then switch over to a high fiber diet. Follow up with me as needed. Jose Roa DO VS,Abbey, I+O VS, Abbey, I+O Laboratory Tests 04/24/18 07:09 Red Blood Count 3.71 L, Mean Corpuscular Volume 99.5 H, Mean Corpuscular Hemo globin 33.4 H, Mean Corpuscular Hemoglobin Concent 33.6, Red Cell Distribution Width 14.9 H, Lymphocytes # (Auto) , Calcium Level 8.0 L, Aspartate Amino Transf (AST/SGOT) 88 H, Alanine Aminotransferase (ALT/SGPT) 165 H, Alkaline Phosphatase 54, Total Bilirubin 0.5 #, Total Protein 5.3 L, Albumin 2.8 L Vital Signs Date Time Temp Pulse Resp B/P (MAP) Pulse Ox O2 Delivery O2 Flow Rate FiO2 04/24/18 12:07 166/88 04/24/18 11:40 98.2 68 20 97 04/23/18 05:31 Room Air I&O- Last 24 Hours up to 6 AM 04/24/18 06:00 Intake Total 1050 ml Output Total 1450 ml Balance -400 ml FILIPE ROA DO Apr 24, 2018 13:10
[2018-04-24 14:00] VITALS: BP 174/92
--- NOTE | 2018-04-24 16:07 | CR ---
DATE OF CONSULTATION: 04/22/2018 REASON FOR CONSULTATION: Diverticulitis with a microperforation. HISTORY OF PRESENT ILLNESS: The patient 57-year-old male with a complicated past medical history, including acute myeloblastic leukemia (AML) with sgdlh-umybbv-qnod disease. He is not under any chemotherapy, but he is under care for his yowdi-kteesu-xmdu disease through [facility]. He presented to the emergency room (ER) yesterday with acute onset of sharp pain in his left lower abdomen. This all started on Saturday and began getting progressively worse. The pain does not radiate anywhere. He says it has been constant. Gets worse with any movement. It feels better when he lies still. He has had similar symptoms like this the past, but it was over 5 years ago, nothing in the recent past. Denies any fevers or chills. No nausea or vomiting. He has had some slight changes in his bowel habits with loose stools, a little bit of blood when he wipes only, but no blood in his stool. No other complaints at this time. He has had surgery to his lower abdominal wall and lower left groin from a mass in the groin and then had a muscle flap done for the area; however, he has never had any surgery on the inside of his abdomen. He has also had a previous colonoscopy that was normal. Currently, he is in an immunocompromised state, very complicated. He is being admitted to the medicine service. He does have diverticulitis currently with microperforations; however, he is nonperitoneal. There is no free air away from the colon, and we will continue to attempt to treat him medically at this time. PAST MEDICAL HISTORY: 1. AML. 2. Uhnsg-fsaiig-lkgi disease. 3. Hypertension. 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 PAST SURGICAL HISTORY: 1. Vasectomy. 2. Mass excision from left thigh and then a skin flap from the abdomen to that area along with a skin graft. SOCIAL HISTORY: Used to smoke two and a half packs per day; quit in 2017. Denies any alcohol or drug abuse. FAMILY HISTORY: Noncontributory. REVIEW OF SYSTEMS: Pertinent positives and negatives as stated in the history of present illness (HPI). ALLERGIES: PENICILLIN and STATINS. PHYSICAL EXAMINATION: Temperature 97.9, pulse 76, respirations 19, blood pressure 136/76, pulse oximetry 95% on room air. HEENT: Pupils equal round and react to light and accommodation. HEART: S1, S2, regular rate and rhythm. LUNGS: Clear to auscultation bilaterally. ABDOMEN: Soft, slightly distended, tender to palpation, left lower quadrant and suprapubically. No signs of peritonitis. There is no rebound tenderness. EXTREMITIES: There is a large scar in the left groin from previous mass excision with skin graft. Pitting edema 1+, bilateral lower extremities. LABORATORY DATA: White count 1.7, hemoglobin 12.9, platelets 43. Potassium 3.8, creatinine 1.36, lactic acid 123. IMAGING STUDIES: CT abdomen and pelvis shows diffuse inflammation and thickening of the sigmoid colon, extensive inflammatory change in the surrounding mesenteric fat, local extraluminal air adjacent to the sigmoid. Findings to suggest a perforated sigmoid diverticulitis. Mild free fluid in the abdomen and pelvis. ASSESSMENT AND PLAN: The patient is a 57-year-old male with a very complicated past medical history. He is immunocompromised right now with qiyxc-urzopu-axmk disease. He also has a complicated diverticulitis with a microperforation. Recommendation at this time is to monitor closely. Will keep him on intravenous (IV) fluids, antibiotics. He can have ice and water, otherwise keep him on bowel rest. I explained to him that he has a very complicated situation right now. We will do our best to treat him medically; however, he shows any signs of decline he will likely need an emergent exploratory laparotomy and colostomy. We will do our best to avoid that at this time, but with him being immunocompromised, he has much higher risk of this getting worse rather than improving with antibiotics alone. Thank you for the consult. Will follow with you closely
[2018-04-24 16:15] VITALS: BP 151/82
--- NOTE | 2018-04-24 18:28 | DS.PDOC ---
Discharge Summary General Date of Admission Apr 22, 2018 at 18:20 Date of Discharge 04/24/18 Primary Care Physician: Ramón Brady MD Attending Physician: ESPERANZA ASTORGA DO Specialist/Consultants Involve Gen Surg: Dr. Roa Onc: Dr. Govea Discharge Summary PROCEDURES PERFORMED DURING STAY: None ADMITTING DIAGNOSES: 1. Perforated Diverticulitis 2. RLE Cellulitis DISCHARGE DIAGNOSES: 1. Diverticulitis with microperforation 2. RLE Cellulitis 3. 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 Hx of Myxoid Liposarcoma 6. HTN COMPLICATIONS/CHIEF COMPLAINT: Cellulitis Of R Leg,Diverticulitis Of Colon. 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 Presents for acute onset of sharp low abd pain that began suddenly after eating supper on Saturday. Denies radiation, describes it as constant, aggravated by movement, alleviated by rest. Denies experiencing this before. No other sx. Denies f/c, n/v, changes in bowel habits, lightheadedness, dizziness. In ER, CT abd/pelvis noted to have perforated diverticulitis. ER spoke with Surgeon Dr. Roa, who deemed it a microperforation and recommended supportive care, NPO, IVF, abx. Of note, pt also complained of rt leg pain. Doppler in ER was neg for DVT. Pt unsure of when the pain started and has limited hx regarding leg pain. Is notable to have erythema and warmth compared to left leg. No weeping fluids or visible ulcers/lesions. HOSPITAL COURSE: Pt admitted to hospital, Surgery consulted and deemed it to be microperf and per their recommendations, pt made NPO and started on IVF and broad spectrum Meropenem given his concurrent cellulitis and penicillin allergy. He was continued on the remainder of his home meds. He gradually continued to improve into the next morning. Our Oncologist was consulted, who recommended starting Neupogen for ANC<1500, as he is normally on Zarxio for this, which was not on formulary. He was given 1 dose of Neupogen, and responded well with ANC of 2550 today on day of transfer 04/24/18. He overall continues to improve, but after further discussion with Onc Dr. Govea, there was concern about possible rapid deterioration and lack of services for Mr. Sheppard at our hospital, especially given his low platelets. Arrangements were made to transfer him to his original care center at [facility]. At time of transfer, blood cultures negative at 48hrs DISCHARGE MEDICATIONS: Please see below. ALLERGIES: Please see below. PHYSICAL EXAMINATION ON DISCHARGE: VITAL SIGNS: Please see below. General: NAD, sitting in chair comfortably, A&Ox3 HEENT: NCAT, anicteric sclera, MMM CV: RRR, distant sounds Pulm: CTAB, no w/r/r. Infusaport on rt chest well GI: hypoactive bowel sounds, mildly tender to palpation in mid lower abd, improved from previous days. Soft, no rebound tenderness, guarding, or rigidity. MSK: able to move all extremities Extremities: 2+ radial pulses. 2+ pitting edema b/l LE. Warmth, erythema, and t enderness to palpation throughout rt LE from foot to calf much improved from previous days LABORATORY DATA: Please see below. IMAGING: * 04/22 RLE Doppler: No evidence of deep venous thrombosis of the right lower extremity femoral popliteal venous system. * 04/22 CT abd/pelvis: Diffuse inflammation and thickening of the sigmoid colon. Extensive inflammatory change in the surrounding mesenteric fat. Local extraluminal air adjacent to the sigmoid. Findings suggest perforated sigmoid diverticulitis. There is mild free fluid in the abdomen and pelvis. Preliminary report provided for Dr. Clemons by telephone at 3:40 p.m. 04/22/2018. * 04/22 CXR: No acute pulmonary disease. PROGNOSIS: fair ACTIVITY: as before admission DIET: as before admission DISCHARGE PLAN: transfer to [facility] DISPOSITION: transfer to other facility DISCHARGE CONDITION: [Stable]. TIME SPENT ON DISCHARGE: Greater than 30 minutes. Vital Signs/I&Os Vital Signs Date Time Temp Pulse Resp B/P (MAP) Pulse Ox O2 Delivery O2 Flow Rate FiO2 04/24/18 16:15 151/82 (105) 04/24/18 14:00 98.2 71 20 96 04/23/18 05:31 Room Air I&O- Last 24 Hours up to 6 AM 04/24/18 06:00 Intake Total 1050 ml Output Total 1450 ml Balance -400 ml Laboratory Data Labs 24H Laboratory Tests 2 04/24/18 07:09: Immature Granulocyte % (Auto) , White Blood Count 3.0L, Red Blood Count 3.71L, Hemoglobin 12.4L, Hematocrit 36.9L, Mean Corpuscular Volume 99.5H, Mean Corpuscular Hemoglobin 33.4H, Mean Corpuscular Hemoglobin Concent 33.6, Red Cell Distribution Width 14.9H, Platelet Count 35L, Lymphocytes # (Auto) , Nucleated Red Blood Cells % (auto) 0.0, Neutrophils 80H, Band Neutrophils 5, Lymphocytes (Manual) 12L, Monocytes (Manual) 2, Eosinophils (Manual) 1, Nucleated Red Blood Cells 1H, Platelet Estimate MARKED DECREASE, Immature Platelet Fraction 8.6, Red Blood Cell Morphology NORMAL, Anion Gap 9, Glomerular Filtration Rate > 60.0, Blood Urea Nitrogen 25H, Creatinine 0.91, Sodium Level 140, Potassium Level 3.0L, Chloride Level 105, Carbon Dioxide Level 26, Calcium Level 8.0L, Aspartate Amino Transf (AST/SGOT) 88H, Alanine Aminotransferase (ALT/SGPT) 165H, Alkaline Phosphatase 54, Total Bilirubin 0.5#, Total Protein 5.3L, Albumin 2.8L, Albumin/Globulin Ratio 1.12 CBC/BMP Laboratory Tests 04/24/18 07:09 Red Blood Count 3.71 L, Mean Corpuscular Volume 99.5 H, Mean Corpuscular Hemoglobin 33.4 H, Mean Corpuscular Hemoglobin Concent 33.6, Red Cell Distribution Width 14.9 H, Lymphocytes # (Auto) , Calcium Level 8.0 L, Aspartate Amino Transf (AST/SGOT) 88 H, Alanine Aminotransferase (ALT/SGPT) 165 H, Alkaline Phosphatase 54, Total Bilirubin 0.5 #, Total Protein 5.3 L, Albumin 2.8 L Microbiology Microbiology 04/22/18 Blood Culture - Preliminary, Resulted No Growth after 48 hours. All Specime... 04/22/18 Blood Culture - Preliminary, Resulted No Growth after 48 hours. All Specime... Discharge Medications Scheduled (Folbic 2.5-25-2 mg) 1 Tab Tab, 1 TAB PO DAILY, (Reported) (mg-Plus Protein 133 mg) 1 Tab Tab, 2 TAB PO BID, (Reported) (Zarxio) 480 Mcg/0.8 Ml Inj, 480 MCG INJ 1XWK, (Reported) FRIDAYS IF ANC <1.5 Acyclovir (Acyclovir) 400 Mg Tab, 400 MG PO DAILY, (Reported) Aspirin (Aspirin EC) 81 Mg Tab, 81 MG PO DAILY, (Reported) Beclomethasone Dipropionate (Beclomethasone Dipropiona) 1 Pow Pow, 2 MG PO QID, (Reported) Budesonide (Budesonide) 3 Mg Cap, 9 MG PO DAILY, (Reported) Ciprofloxacin HCl (Cipro) 500 Mg Tab, 500 MG PO BID, (Reported) Clopidogrel Bisulfate (Plavix) 75 Mg Tab, 75 MG PO DAILY, (Reported) ON HOLD- WAITING FOR PLATELET COUNT BEFORE RESTARTING Divalproex Sodium (Divalproex Sodium Dr) 125 Mg Tab, 125 MG PO QHS, (Reported) Doxycycline Hyclate (Doxycycline Hyclate) 100 Mg Cap, 100 MG PO QPM, (Reported) HOLD WHILE ON CIPRO Furosemide (Lasix) 20 Mg Tab, 20 MG PO 3XW, (Reported) SAT,SAT,SAT Metolazone (Metolazone) 2.5 Mg Tab, 2.5 MG PO 3XW, (Reported) SAT,SAT,SAT Metoprolol Tartrate (Metoprolol Tartrate) 25 Mg Tab, 25 MG PO BID, (Reported) Pantoprazole Sodium (Pantoprazole Sodium) 40 Mg Tab, 40 MG PO DAILY, (Reported) Paroxetine (Paroxetine HCl) 20 Mg Tab, 20 MG PO DAILY, (Reported) Posaconazole (Noxafil) 100 Mg Tab, 300 MG PO DAILY, (Reported) Potassium Chloride (Potassium Chloride ER) 20 Meq Tab, 40 MEQ PO BID, (Reported) Ramipril (Ramipril) 10 Mg Cap, 10 MG PO BID, (Reported) Ropinirole Hydrochloride (Ropinirole HCl) 0.25 Mg Tab, 0.75 MG PO QHS, (Reported) Sirolimus (Sirolimus) 0.5 Mg Tab, 0.5 MG PO DAILY, (Reported) @ LUNCHTIME Ursodiol (Ursodiol) 300 Mg Cap, 600 MG PO TID, (Reported) Vitamin D (Drisdol) 50,000 Unit Cap, 50,000 UNIT PO QWEEK, (Reported) SATURDAY Scheduled PRN Famotidine (Famotidine) 20 Mg Tab, 20 MG PO DAILY PRN for HEARTBURN/INDIGESTION, (Reported) Loperamide HCl (Loperamide HCl) 2 Mg Tab, 4 MG PO PRN PRN for DIARRHEA, (Reported) Ondansetron HCl (Ondansetron HCl) 8 Mg Tab, 8 MG PO TID PRN for NAUSEA, (Reported) Tramadol HCl (Tramadol HCl) 50 Mg Tab, 50 MG PO QID PRN for PAIN, (Reported) Allergies Coded Allergies: Penicillins (Verified Allergy, Severe, POSSIBLE ANAPHYLAXIS, 06/10/12) Penicillins Cross Reactors (Verified Allergy, Severe, POSSIBLE ANAPHYLAXIS, 06/10/12) Statins (Verified Allergy, Intermediate, EXTREME MUSCLE PAIN, CANNOT TOLERATE, 04/22/18) GME ATTESTATION GME ATTESTATION My faculty preceptor for this patient encounter was physically present during the encounter and was fully available. All aspects of the patient interview, examination, medical decision making process, and medical care plan development were reviewed and approved by the faculty preceptor. The faculty preceptor is aware and concurs with the plan as stated in the body of this note and will attest to such by his/her cosignature. GONZALO GUTIÉRREZ DO Apr 24, 2018 18:28
[2018-04-24 21:13] LABS: MAGNESIUM LEVEL 2.4 MG/DL (1.8-2.4)
--- NOTE | 2018-04-25 15:01 | CR ---
MEDICAL ONCOLOGY INPATIENT CONSULTATION DATE OF CONSULTATION: 04/23/2018 Carlos Espinoza DO, of hospitalist service requested inpatient consult on Jung Sheppard for oncology recommendations. 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 A GVHD flare was treated with steroid taper in February 2018. Endoscopy in February 2018 confirmed grade 1 upper and lower GIGVHD. Beclomethasone and budesonide were restarted late February. He is in addition treated through [facility] on sirolimus and tocilizumab. The patient also has a history of lower extremity myxoid liposarcoma 2014, status post resection, followed by radiation, requiring extensive grafting throughout 2015. More recently, an abdominal scar dehisced in February 2018 at [place]. Culture showed coag negative staph and Corynebacterium, thought to be colonizers. He was not treated with antibiotics at that time. His posttransplant care is through [facility] under Dr. Lakhwinder Funes. A contact number is DARIO Pena at the bone marrow transplant service, telephone ; the bone marrow clinic itself is at . Jung is now admitted with abdominal pain, found to have sigmoid diverticulitis, was thought to be a microperforation, as well as right lower extremity cellulitis. At the bedside, he was unfortunately on a bedpan in the emergency room. Encounter and exam were limited. PAST MEDICAL HISTORY: As noted above. In addition, hypertension. PAST SURGICAL HISTORY: Left thigh skin flap, vasectomy. ALLERGIES: PENICILLIN, PENICILLIN CROSS-REACTOR STATINS. OUTPATIENT MEDICATION LIST: Per 04/06/2018 [facility] note: - IVIG 35 grams q. 4 weeks. Most recent was due on 03/31/2018. - tocilizumab 800 mg (frequency not sited) - pentamidine 300 mg q. 28 days. Most recent due 03/31/2018. - ursodiol 300 mg two caps three times daily - therapeutic phlebotomy for hyperferritinemia when hemoglobin greater than 11.5 125 mL phlebotomy - doxycycline 100 mg daily - divalproex 125 mg delayed release daily - K tab 20 mEq daily - MG Plus Protein 133 mg two tabs b.i.d. - cholecalciferol 50,000 units once weekly - acyclovir 400 mg daily - Zofran ODT 8 mg up to three times daily p.r.n. nausea, vomiting - loperamide 2 mg two tabs by mouth up to four times a day as needed for diarrhea, maximum eight tablets - Zarxio 480 mcg subcu Saturday, Saturday, Saturday - Protonix 40 mg daily - clopidogrel 75 mg daily - sirolimus 0.5 mg Saturday, Saturday, Saturday - Lasix 20 mg daily as needed if weight greater than 276 pounds - ramipril 10 mg twice daily, hold for systolic blood pressure less than 110 - metoprolol 25 mg twice daily, hold for systolic blood pressure less than 110 - ropinirole 0.25 mg three tabs at nighttime - paroxetine 20 mg daily - aspirin 81 mg daily - tramadol 50 mg four times daily as needed - posaconazole 100 mg three tabs daily - ondansetron 8 mg three times daily as needed for nausea, vomiting - folic acid 1 mg daily - famotidine 20 mg daily p.r.n. - Xopenex with pentamidine beclomethasone 2 mg four times a day - budesonide 3 mg three caps once a day Vital signs: Temperature 97.9, blood pressure 143/83, heart rate 80, respiratory 20, O2 sat 97%. The patient is an overweight man, supine on a gurney in the emergency room. Right lower extremity tremor notably erythematous with 1+ pitting edema. Remainder of exam deferred. LABS: WBC 1.3, hemoglobin 12, hematocrit 35, platelets are 39. ANC 86, potassium 3.1. Remainder of electrolytes unremarkable. AST 77, ALT 145, albumin 2.8. IMAGING: Right lower extremity Doppler negative for DVT. Abdomen and pelvis CT with diffuse inflammation and thickening of the sigmoid colon. Mild perihepatic and perisplenic free fluid. Focal extraluminal air just above the sigmoid, possibly representing perforated sigmoid diverticulitis. No free erythema anywhere else. Mild free fluid in the abdomen and pelvis. IMPRESSION: Jung Sheppard is a 57-year-old man, status post allogeneic haploidentical stem cell transplant August 2017 following induction for AML with 7 +3 followed by cytarabine consolidation. He has had GIGVHD grade 1, most recently on biopsy in late 2017. His day #0 was 09/06/2017. He underwent CD34 stem cell boost 03/13/2018. He is maintained on granulocyte colony-stimulating factor as an outpatient for ANC below 1500. He is currently admitted with diverticulitis, possible perforation, and presumptive right lower extremity cellulitis. His treatment antibiotics include ciprofloxacin, metronidazole, and meropenem, in addition to his baseline prophylactic acyclovir. I have tried to contact Dr. Funes about the patient to ask for any specific recommendations beyond the GCSF support for ANC below 1500. I have recommended filgrastim 480 mcg subcu daily until absolute neutrophil count rate is greater than 1500. The patient recently received to IVIG and would not be due again for another 10 days or so. If still hospitalized, he should receive this. He has got significant thrombocytopenia, and aspirin should be held until this improves. I will continue to work hard to contact the BMT team for specific recommendations. Jung is largely followed by Dr. Cira Soriano in [place] and Dr. Lakhwinder Funes at [facility] [place], receiving blood draws here and some injections, but his primary hematologic and oncologic care is through [facility] and [facility]. MATHER HOSPITALRadha
--- NOTE | 2018-04-25 21:54 | IPN ---
MEDICAL ONCOLOGY INPATIENT FOLLOWUP DATE OF SERVICE: 04/24/2018 I spoke with one of the bone marrow transplant team coordinators at [facility] today. The preference of the bone marrow transplant team is for the patient to be transferred to [place] to manage his dual infections, perforated bowel diverticulitis and right lower extremity cellulitis. I have spoken with Dr. Christy and communicated with Dr. Funes, the patient's attending at [place]. Overall a plan for transfer is in process. I spoke today with Jung and his . They are agreeable and prefer this plan. Mrs. Sheppard has brought the sirolimus 0.5 mg for Jung to begin taking inpatient. IMPRESSION 57-year-old man status post allogeneic haploidentical stem cell transplant for AML in 2018 complicated by GVHD, currently admitted with diverticulitis, microperforation and right lower extremity cellulitis. Stabilized. Absolute neutrophil count now above 1500. He received 2 days of Neupogen 480 mcg subcu daily. Should he continue on here at [facility] for much longer he should continue to receive Neupogen as needed to maintain absolute neutrophil count 1500 or greater. For any blood product transfusions he should receive, leukocytosis reduced, irradiated blood products. (CMV status is not relevant). MTDD
== END 2018-04-24 19:37 | disposition short-term general hospital (02) | DRG 392 ==
LOC: M ED 11:26 → M ED INP 18:20 → M MSPAV 04-24 11:09
PROVIDERS: ADMIT Internal Medicine; ATTEND Internal Medicine
DX: K57.20 Diverticulitis of large intestine with perforation and abscess without bleeding (principal); L03.115 Cellulitis of right lower limb; C92.91 Myeloid leukemia, unspecified in remission; D89.813 Graft-versus-host disease, unspecified; I10 Essential (primary) hypertension; Z79.82 Long term (current) use of aspirin; Z79.899 Other long term (current) drug therapy; Z88.0 Allergy status to penicillin; Z88.8 Allergy status to other drugs, medicaments and biological substances; Z87.891 Personal history of nicotine dependence; E87.6 Hypokalemia; Z85.831 Personal history of malignant neoplasm of soft tissue; Z92.3 Personal history of irradiation